=== PATIENT | female | born 1950 | race Asian ===

== ENCOUNTER 2018-03-02 18:01 | Emergency (ER) | payer MEDICARE, OTHER ==
[~2018-03-02] VITALS: Ht 149.9 cm; Wt 54.4 kg
[2018-03-02] MEDS ORDERED: LORazepam 2MG/ML-1ML VIAL IV ONE (21:00)
[2018-03-02 21:17] LABS: Basophils # (auto) 0 uL; Basophils % (auto) 0.7 % (0.0-2.0); Eosinophils # (auto) 0 uL; Eosinophils % (auto) 0.1 % (0.0-7.0); Hemoglobin 13.7 g/dL (12.2-16.2); Lymphocytes # (auto) 0.7 uL; Lymphocytes % (auto) 13.4 % (10.0-50.0); Mean Corpuscular Hemoglobin 32.9 pg (28.0-32.0); Mean Corpuscular Hgb Conc. 34.1 g/dL (32.0-36.0); Mean Corpuscular Volume 96.2 fL (80.0-100.0); Monocytes # (auto) 0.3 uL; Monocytes % (auto) 4.9 % (0.0-12.0); Neutrophils # (auto) 4.3 uL; Neutrophils % (auto) 80.9 % (37.0-80.0); Nucleated Red Blood Cells % 0.1 %; Platelet Count (auto) 225 10^3/uL (140-450); Red Blood Cells 4.16 10^6/uL (4.0-5.20); Red Cell Distribution Width 13.7 % (11.8-14.3); White Blood Cell 5.3 10^3/uL (4.4-10.8)
[2018-03-02 21:36] LABS: Albumin 3.5 g/dL (3.4-5.0); Calcium 8.8 mg/dL (8.5-10.1); Potassium 3.5 mmol/L (3.5-5.1)
[2018-03-02 21:38] LABS: BUN/Creatinine Ratio 20.3
[2018-03-02 21:53] LABS: Bilirubin, Total 0.4 mg/dL (0.2-1.0)
[2018-03-02] MEDS ORDERED: KETOROLAC TROMETH 30 MG/ML 1ML VIAL IV ONE (22:45)
[2018-03-02] MEDS ORDERED: ONDANSETRON HCL 4 MG/2 ML VIAL IV ONE (22:45)
[2018-03-02] MEDS ORDERED: ONDANSETRON ODT 4 MG TAB PO ONE (23:15)
[2018-03-02 23:40] VITALS: BP 130/72
== END 2018-03-02 23:53 | disposition home or self-care (01) ==
LOC: ER 18:06
DX: R42 Dizziness and giddiness (principal); F41.9 Anxiety disorder, unspecified
CPT/HCPCS: 36415; 80053; 82962; 85025; 93005; 96374; 96375; 99285; J1885; J2060; Q0162